=== PATIENT | female | born 1945 | race Caucasian/White ===

== ENCOUNTER 2017-07-11 12:10 | Day surgery (SDC) | payer MEDICARE ==
[2017-07-10 15:49] VITALS: BMI 52.0
[~2017-07-11 12:10] MED LIST: Cyclopentolate 1% Opth Drop 2 ML BOT FS SCH; Fluorouracil 100 MG, Enoxaparin Sodium 25 MG, EPINEPHrine 0.3 MG in Ophthalmic Irrigati... IVPB SCH; Phenylephrine 2.5% Ophth Soln 5 ML BOT FS SCH
[2017-07-11] MEDS ORDERED: Cyclopentolate 1% Opth Drop 2 ML BOT ONE (12:52)
[2017-07-11] MEDS ORDERED: Phenylephrine 2.5% Ophth Soln 5 ML BOT ONE (12:54)
[2017-07-11] MEDS ORDERED: Midazolam HCl 2 mg/2 ml Vial ONE (14:16)
[2017-07-11] MEDS ORDERED: Diprivan 20 ML ONE (14:16)
[2017-07-11] MEDS ORDERED: Lidocaine 1% PF 5 ML VIAL ONE (15:53)
[2017-07-11] MEDS ORDERED: Propofol 200 MG/20 ML VIAL ONE (15:53)
--- NOTE | 2017-07-11 16:03 | OP ---
DATE OF PROCEDURE: 07/11/2017 PREOPERATIVE DIAGNOSIS: Rhegmatogenous retinal detachment, left eye. POSTOPERATIVE DIAGNOSIS: Rhegmatogenous retinal detachment, left eye. PROCEDURE: Pars plana vitrectomy and retinal detachment repair, left eye. SURGEON: Alli Busby M.D. ANESTHESIA: Local with monitored anesthesia care. COMPLICATIONS: None. PROCEDURE IN DETAIL: The patient was identified in the preoperative holding area. Appropriate infor med consent for the planned surgical procedure on the left eye had been obtained. The patient was tr ansported to the operative suite. Appropriate cardiopulmonary monitoring was established. Local ane sthesia was obtained using retrobulbar and modified Van Lint lid block using 50/50 mixture of 4% lido ekaterina and 0.75% bupivacaine. The patient was prepped and draped in the usual sterile manner for opht halmic surgery on the left eye. Lid speculum was placed in the left eye. A 25-gauge trocars were pl aced in conjunctiva and sclera supratemporally, inferotemporally, and supranasally. Infusion line wa s placed inferotemporally. Light pipe and vitreous cutter were inserted into the eye. Core vitrecto my was performed. Tear was noted at the 12:30 o'clock position. Careful attention was turned to the tear and vitreous was trimmed carefully from the area around the tear. Posterior drain retinotomy w as created superior to the nerve. Complete air fluid exchange was performed with 10 minutes being al lowed for fluid to drain posteriorly. A 360 laser was placed around the retina. Peripheral RPE was very thin and depigmented and special effort was made to make sure there was good take in all areas. A 28% sulfur hexafluoride gas was infused into the eye. Trocars were removed. Superior sclerotomy was sutured closed. Retrobulbar Kenalog and subconjunctival Ancef were placed. Atropine and antibio tic ointment were placed, and the eye was patched and shielded. The patient was advised to position right side down and follow up in the morning with Dr. Busby.
== END 2017-07-11 16:15 | disposition home or self-care (01) ==
LOC: SDC 12:10
PROVIDERS: ATTEND Ophthalmology Retina Specialist
PROC: 08T53ZZ Resection of Left Vitreous, Percutaneous Approach (ICD-10-PCS; principal; 2017-07-11)
PROC: 3E0C3GC Introduction of Other Therapeutic Substance into Eye, Percutaneous Approach (ICD-10-PCS; 2017-07-11)
DX: H33.012 Retinal detachment with single break, left eye (principal); I10 Essential (primary) hypertension; E78.5 Hyperlipidemia, unspecified; G47.30 Sleep apnea, unspecified; D64.9 Anemia, unspecified; M19.90 Unspecified osteoarthritis, unspecified site; E03.9 Hypothyroidism, unspecified; Z99.89 Dependence on other enabling machines and devices; Z79.52 Long term (current) use of systemic steroids; Z79.1 Long term (current) use of non-steroidal anti-inflammatories (NSAID); Z79.899 Other long term (current) drug therapy
CPT/HCPCS: 67025; J0171; J1650; J2001; J2250; J2704; J9190

== ENCOUNTER 2017-08-01 07:45 | Day surgery (SDC) | payer MEDICARE ==
[2017-07-31 12:38] VITALS: BMI 49.4
[2017-08-01] MEDS ORDERED: Cyclopentolate 1% Opth Drop 2 ML BOT ONE (08:04)
[2017-08-01] MEDS ORDERED: Phenylephrine 2.5% Ophth Soln 5 ML BOT ONE (08:06)
[2017-08-01] MEDS ORDERED: Tropicamide 1% 15 ML BOTTLE ONE (08:06)
[2017-08-01] MEDS ORDERED: Midazolam HCl 2 mg/2 ml Vial ONE (10:15)
[2017-08-01] MEDS ORDERED: Lidocaine 2% 10 ML INJ ONE (10:15)
[2017-08-01] MEDS ORDERED: Ondansetron HCl/PF 4 MG/2 ML Vial ONE ×2 (10:15→13:28)
[2017-08-01] MEDS ORDERED: Fentanyl 100 MCG/2 ML VIAL ONE (10:15)
[2017-08-01] MEDS ORDERED: PROPOFOL 20 ML ONE (10:15)
[2017-08-01] MEDS ORDERED: ePHEDrine/0.9% NaCl/PF SYRINGE 50 mg/10 ml ONE (13:28)
[2017-08-01] MEDS ORDERED: PROPOFOL 200 MG/20 ML VIAL ONE (13:28)
[2017-08-01] MEDS ORDERED: Lidocaine 1% PF 5 ML VIAL ONE (13:28)
[2017-08-01] MEDS ORDERED: EPINEPHrine 1 MG/10 ML Abboject SYRINGE ONE (13:28)
[2017-08-01] MEDS ORDERED: Glycopyrrolate 0.2 MG/ML 5 ML SYRINGE ONE (13:28)
[2017-08-01] MEDS ORDERED: Succinylcholine Chloride 20 MG/ML 10 ml SYRINGE FS ONE (13:28)
[2017-08-01] MEDS ORDERED: Dexamethasone 20 MG/5 ML VIAL ONE (13:28)
--- NOTE | 2017-08-01 14:49 | OP ---
DATE OF SURGERY: 08/01/2017 PREOPERATIVE DIAGNOSIS: Rhegmatogenous retinal detachment, left eye. POSTOPERATIVE DIAGNOSIS: Rhegmatogenous retinal detachment, left eye. PROCEDURE PERFORMED: Complex retinal detachment repair, left eye. SURGEON: Alli Busby M.D. ANESTHESIA: General endotracheal. PROCEDURE IN DETAIL: The patient was identified in the preoperative holding area. Appropriate infor med consent for the planned surgical procedure on the left eye had been obtained. The patient was tr ansported to the operative suite where appropriate cardiopulmonary monitoring was established. Local anesthesia was obtained using retrobulbar and modified Van Lint lid block using 50/50 mixture of 4% lidocaine, 0.75% bupivacaine. The patient was prepped and draped in the usual sterile manner for oph thalmic surgery on the left eye. Lid speculum was placed in the left eye. The 25-gauge trocars plac ed in conjunctiva and sclera supratemporally, inferotemporally, and supranasally. Infusion line was placed inferotemporally. Light pipe and vitreous cutter were inserted into the eye. Core vitrectomy was performed, 360 scleral buckle was placed with a 42 band and a 30/83 sleeve superior temporally. Buckle was fixated in place with 5-0 mersilene sutures in the oblique quadrants. The buckle was aaron vated to the appropriate height. Laser was placed into all non-macular areas of the retina. Silicon e oil was infused into the eye. Sclerotomy was sutured closed. Intraocular pressure was checked, 3- 15 with Schiotz tonometer. Conjunctiva was closed with 6-0 plain gut suture. Retrobulbar Kenalog an d subconjunctival Ancef were placed. Atropine and antibiotic ointment were placed and the eye was pa tched and shielded. The patient was taken to the postoperative recovery unit in good condition yumiko nair suffered no immediate perioperative period. DISCHARGE INSTRUCTIONS: Patient was instructed to keep patch and shield on, avoid lifting or bending , and followup appointment with Dr. Busby.
== END 2017-08-01 13:45 | disposition home or self-care (01) ==
LOC: SDC 07:45
PROVIDERS: ATTEND Ophthalmology Retina Specialist
PROC: 08B53ZZ Excision of Left Vitreous, Percutaneous Approach (ICD-10-PCS; principal; 2017-08-01)
DX: H33.002 Unspecified retinal detachment with retinal break, left eye (principal)
CPT/HCPCS: 67113; C1814; J0171; J1100; J1650; J2001; J2250; J2405; J2704; J3010; J9190

== ENCOUNTER → 2017-11-28 | Day surgery (SDC) | payer MEDICARE ==
[2017-11-27 13:55] VITALS: BMI 50.6
[~2017-11-28] MED LIST changes: +Bupivacaine 0.75% 10 ML AMP ONE; +CEFAZOLIN 1 GM VIAL ONE; +Cyclopentolate 1% Opth Drop 2 ML BOT ONE; +Fentanyl 100 MCG/2 ML VIAL ONE; +Lidocaine 1% PF 5 ML VIAL ONE; +Lidocaine 4% PF 5 ML AMP ONE; +Maxitrol 0.1% Opth Oint 3.5 GM TUBE ONE; +Midazolam HCl 2 mg/2 ml Vial ONE; +PROPOFOL 20 ML ONE; +PROPOFOL 200 MG/20 ML VIAL ONE; +Phenylephrine 2.5% Ophth Soln 5 ML BOT ONE; +Triamcinolone 40 MG/ML VIAL ONE
--- NOTE | 2017-11-28 22:33 | OP ---
DATE OF SURGERY: 11/28/2017 PREOPERATIVE DIAGNOSIS: Retinal detachment, left eye. POSTOPERATIVE DIAGNOSIS: Retinal detachment, left eye. PROCEDURE: Pars plana vitrectomy and retinal detachment repair, left eye. SURGEON: Alli Busby MD ANESTHESIA: Local with monitored anesthesia care. PROCEDURE IN DETAIL: The patient was identified in the preoperative holding area. Appropriate infor med consent for the planned surgical procedure on the left eye had been obtained. The patient was tr ansported to the operative suite. Appropriate cardiopulmonary monitoring was established. Local ane sthesia was obtained using retrobulbar block. The patient was prepped and draped in the usual steril e manner for ophthalmic surgery on the left eye. Lid speculum was placed in the left eye. 25-gauge trocars were placed infratemporally, supratemporally. Attention was turned to the area of subretinal fluid superonasally. A 25-gauge needle was introduced into the subretinal space and the fluid was n oted to be silicone oil in nature. A 25-gauge temporal sclerotomy was created and a PFC cannula was inserted into the eye and central silicone oil was removed. The superior drain was created and subre tinal silicone oil was drained. Posterior drain retinotomy was created and the retina was flattened under air. laser was placed using endolaser delivery device. Superior posterior synechiae wer e lysed using a Sinskey hook. A 28% sulfur hexafluoride gas was infused into the eye. Sclerotomy wa s suture closed. Retrobulbar Kenalog and subconjunctival Ancef were placed. Atropine and antibiotic ointment were placed, and the eye was patched and shielded. The patient was taken to the postoperat [facility] recovery unit in good condition having suffered no immediate perioperative complications. DISCHARGE INSTRUCTIONS: The patient was instructed to keep the patch and shield on, avoid lifting or bending, position head up or left side down. Follow up in the morning with Dr. Busby.
== END ==
LOC: SDC 11:26
PROVIDERS: ATTEND Ophthalmology Retina Specialist
PROC: 3E0C3GC Introduction of Other Therapeutic Substance into Eye, Percutaneous Approach (ICD-10-PCS; principal; 2017-11-28)
PROC: 08QF3ZZ Repair Left Retina, Percutaneous Approach (ICD-10-PCS; 2017-11-28)
DX: H33.022 Retinal detachment with multiple breaks, left eye (principal); Z79.1 Long term (current) use of non-steroidal anti-inflammatories (NSAID); Z79.82 Long term (current) use of aspirin; Z79.899 Other long term (current) drug therapy
CPT/HCPCS: 67025; J0171; J0690; J1650; J2001; J2250; J2704; J3010; J3301; J3490; J9190

== ENCOUNTER 2018-05-01 08:15 | Day surgery (SDC) | payer MEDICARE ==
[2018-04-30 12:54] VITALS: BMI 50.1
[~2018-05-01 08:15] MED LIST changes: -Bupivacaine 0.75% 10 ML AMP ONE; -CEFAZOLIN 1 GM VIAL ONE; -Cyclopentolate 1% Opth Drop 2 ML BOT ONE; +Fluorouracil 100 MG, Enoxaparin Sodium 25 MG, EPINEPHrine 0.3 MG in Ophthalmic Irrigati... FS SCH; -Fluorouracil 100 MG, Enoxaparin Sodium 25 MG, EPINEPHrine 0.3 MG in Ophthalmic Irrigati... IVPB SCH; -Lidocaine 1% PF 5 ML VIAL ONE; -Lidocaine 4% PF 5 ML AMP ONE; -Maxitrol 0.1% Opth Oint 3.5 GM TUBE ONE; -PROPOFOL 20 ML ONE; -PROPOFOL 200 MG/20 ML VIAL ONE; -Phenylephrine 2.5% Ophth Soln 5 ML BOT ONE; -Triamcinolone 40 MG/ML VIAL ONE
[2018-05-01] MEDS ORDERED: Phenylephrine 2.5% Ophth Soln 5 ML BOT ONE (10:01)
[2018-05-01] MEDS ORDERED: Cyclopentolate 1% Opth Drop 2 ML BOT ONE (10:01)
--- NOTE | 2018-05-01 12:09 | OP ---
DATE OF PROCEDURE: 05/01/2018 PREOPERATIVE DIAGNOSIS: Epiretinal membrane, left eye. POSTOPERATIVE DIAGNOSIS: Epiretinal membrane, left eye. PROCEDURE PERFORMED: Pars plana vitrectomy and membrane peel, left eye. ANESTHESIA: Local with monitored anesthesia care. DESCRIPTION OF PROCEDURE: The patient was identified in the preoperative holding area. Appropriate informed consent for the planned surgical procedure on the left eye had been obtained. The patient was transported to the operative suite, where appropriate cardiopulmonary monitoring was established. Local anesthesia was obtained using retrobulbar block modified Van Lint lid block using 50:50 mixture of 4% lidocaine and 0.75% bupivacaine. The patient was prepped and draped in usual sterile manner for ophthalmic surgery on the left eye. Lid speculum was placed in the left eye. A 25-gauge trocar was placed through the conjunctiva and sclera superotemporally, inferotemporally, and superonasally. Infusion line was placed inferotemporally. Light pipe and vitreous cutter were inserted into the eye. Core vitrectomy was performed. Indocyanine green dye was infused on the posterior pole x1 identifying the epiretinal membrane. This was elevated using membrane scraper and peeled across the macula in one piece. No residual membranes were noted in the macular area. Adequate laser was placed. No areas of retinal elevation were noted other than the chronic detachment inferonasally, which was stable. Trocars were removed. Sclerotomy suture closed with 6-0 plain gut suture. Retrobulbar Kenalog and subconjunctival Ancef were placed. Atropine antibiotic ointment was placed and the eye was patched and shielded. The patient was taken to the postoperative recovery unit in good condition, having suffered no immediate perioperative complications. The patient was instructed to keep the patch and shield on, avoid lifting or bending. Follow up in the morning with Dr. Busby. Job ID: [id number]
[2018-05-01] MEDS ORDERED: Triamcinolone 40 MG/ML VIAL ONE (16:30)
[2018-05-01] MEDS ORDERED: Lidocaine 4% PF 5 ML AMP ONE (16:30)
[2018-05-01] MEDS ORDERED: CEFAZOLIN 1 GM VIAL ONE (16:30)
[2018-05-01] MEDS ORDERED: Bupivacaine 0.75% 10 ML AMP ONE (16:30)
[2018-05-01] MEDS ORDERED: Maxitrol 0.1% Opth Oint 3.5 GM TUBE ONE (16:30)
[2018-05-01] MEDS ORDERED: Lidocaine 1% PF 5 ML VIAL ONE (16:30)
[2018-05-01] MEDS ORDERED: Indocyanine Green 25 MG/10 ML VIAL ONE (16:30)
== END 2018-05-01 12:15 | disposition home or self-care (01) ==
LOC: SDC 08:15
PROVIDERS: ATTEND Ophthalmology Retina Specialist
PROC: 08T53ZZ Resection of Left Vitreous, Percutaneous Approach (ICD-10-PCS; principal; 2018-05-01)
PROC: 08NF3ZZ Release Left Retina, Percutaneous Approach (ICD-10-PCS; 2018-05-01)
DX: H35.372 Puckering of macula, left eye (principal); E66.9 Obesity, unspecified; Z68.43 Body mass index [BMI] 50.0-59.9, adult; Z79.1 Long term (current) use of non-steroidal anti-inflammatories (NSAID); Z79.82 Long term (current) use of aspirin; Z79.899 Other long term (current) drug therapy; Z98.890 Other specified postprocedural states
CPT/HCPCS: J0171; J0690; J1650; J2001; J2250; J3010; J3301; J3490; J9190